=== PATIENT | female | born 1955 | race Caucasian/White ===

== ENCOUNTER 2019-09-25 12:00 | Inpatient (IN) ==
--- NOTE | 2019-09-20 08:45 | Anesthesiology Consultation ---
Date of Service September 20, 2019 Assessment & Plan (1) Encounter for pre-operative examination: *Per nursing phone assessment on 09/12: Travel screen negative. No known COVID-19 positive contacts. No current COVID-19 related symptoms. Surgeon arranging preop COVID testing. Awaiting results. - S/P Left anterior hip replacement: 11/10/17: SAB x1 attempt at L3-L4 at [facility] - No preop EKG received (most recent available EKG from 05/2017). Will order for AM DOS. Chart Review Chart Review: Acceptable Risk for Surgery (pending EKG AM DOS) and Patient NOT seen in Pre Admission Testing History Surgery Operation Date: 06/20/19 11:10 Proposed Procedures p Right Knee Medial Uni Arthroplasty - Renny Coy DO Operation Date: 09/25/19 07:00 Proposed Procedures p Right Knee Medial Uni Arthroplasty, - Renny Coy DO s Possible Total Knee Arthroplasty - Renny Coy DO Height/Weight Height: 5 ft 5 in Weight: 72.575 kg Allergies Allergy/AdvReac Type Severity Reaction Status Date / Time No Known Allergies Allergy Verified 09/13/19 10:33 Medications Home Medications Medication Instructions Recorded Confirmed Last Taken cholecalciferol (vitamin D3) 800 unit PO QAM 10/20/17 09/13/19 11/04/17 08:00 [Vitamin D3] multivitamin 1 tab PO QAM 10/20/17 09/13/19 11/05/17 08:00 ascorbic acid (vitamin C) [Vitamin 250 mg PO QAM 05/16/19 09/13/19 Unknown C] calcium carbonate [Calcium 500] 500 mg PO QAM 05/16/19 09/13/19 Unknown magnesium oxide 400 mg PO QAM 05/16/19 09/13/19 Unknown vitamin B complex 1 tab PO QAM 05/16/19 09/13/19 Unknown apple cider vinegar 300 mg PO QAM 09/13/19 09/13/19 Unknown elderberry fruit-honey 7.5 ml PO QAM 09/13/19 09/13/19 Unknown turmeric 400 mg PO QAM 09/13/19 09/13/19 Unknown Past Medical History Medical History DJD (degenerative joint disease) Osteoarthritis Protein C deficiency no personal hx of DVT/PE, dx d/t family hx of clotting disorder Rheumatoid arthritis possible per remote heme records (2018) Past Family History Family History Mother Family history of diabetes mellitus Past Surgical History Surgical History H/O detached retina repair H/O hysterectomy with oophorectomy History of D&C History of hand surgery MULTIPLE FINGER SURGERIES History of tonsillectomy History of total hip arthroplasty Left anterior hip replacement: 11/10/17: SAB x1 attempt at L3-L4 at [facility] Rectocele S/P cervical spinal fusion 2013 C5-6, C6-7. DENIES RESTRICTIONS. Social History Smoking Status: Never smoker Do You Dip or Chew Tobacco: No Hx Alcohol Use: No Hx Substance Use: No substance use type: does not use Testing Laboratory Results 09/13/19 WBC 4.96 H/H 13.8/42.8 PLATELETS 243 PT 11.9 PTT 33.0 INR 1.04 UA small leuk esterase, negative nitrite HGBA1C 5.7% Electrocardiogram Date: 06/10/17 Findings: + NSR @ (63) NS TWA; Prolonged QT.
--- NOTE | 2019-09-23 21:48 | History & Physical Report ---
Date of Service September 25, 2019 Assessment & Plan (1) Degenerative joint disease of knee, right: I have indicated the patient for right medial unicompartmental knee replacement. The risks, benefits and complications of surgery were explained to the patient which include but not limited to infection, acute blood loss, DVT/PE, injury to nerves, vessels, bone, soft tissue, arthrofibrosis, chronic pain, failure of the prosthesis, knee dislocation, leg length discrepancy, need for additional surgery, cardiac and pulmonary events and . The patient wished to proceed with surgery and informed consent was obtained at this time. We will plan for 81mg ASA BID post-operatively for DVT prophylaxis. Upon discharge the patient will be discharged home with home health services. Appropriate clearances by PCP were obtained. History of Present Illness Chief Complaint: Right knee pain/djd Primary Care Provider: Paul Oliva The patient is a 64 year old female who presents with complaints of severe right knee pain and DJD. The patient has failed outpatient conservative treatments to this point which included NSAIDS, IA corticosteroid and DOBBINS injections, bracing, PT and a home exercise/walking program. The patient's pain and limited function have progressed to the point where they severely hinder their activities of daily living and they no longer tolerate exercise programs. They are requesting to proceed with total knee replacement surgery. Allergies Allergy/AdvReac Type Severity Reaction Status Date / Time No Known Allergies Allergy Verified 09/25/19 12:48 Home Medications Home Medications Medication Instructions Recorded Confirmed Type cholecalciferol (vitamin D3) 800 unit PO QAM 10/20/17 09/25/19 History [Vitamin D3] multivitamin 1 tab PO QAM 10/20/17 09/25/19 History ascorbic acid (vitamin C) [Vitamin 250 mg PO QAM 05/16/19 09/25/19 History C] calcium carbonate [Calcium 500] 500 mg PO QAM 05/16/19 09/25/19 History magnesium oxide 400 mg PO QAM 05/16/19 09/25/19 History vitamin B complex 1 tab PO QAM 05/16/19 09/25/19 History apple cider vinegar 300 mg PO QAM 09/13/19 09/25/19 History elderberry fruit-honey 7.5 ml PO QAM 09/13/19 09/25/19 History turmeric 400 mg PO QAM 09/13/19 09/25/19 History Past Med/Surg History Medical History DJD (degenerative joint disease) Osteoarthritis Protein C deficiency no personal hx of DVT/PE, dx d/t family hx of clotting disorder Rheumatoid arthritis possible per remote heme records (2018) Surgical History H/O detached retina repair H/O hysterectomy with oophorectomy History of D&C History of hand surgery MULTIPLE FINGER SURGERIES History of tonsillectomy History of total hip arthroplasty Left anterior hip replacement: 11/10/17: SAB x1 attempt at L3-L4 at [facility] Rectocele S/P cervical spinal fusion 2013 C5-6, C6-7. DENIES RESTRICTIONS. Family History Mother Family history of diabetes mellitus Social History Smoking Status: Never smoker Second Hand Exposure: No; Do You Dip or Chew Tobacco: No; Tobacco Cessation Education Requested by Patient: No Hx Alcohol Use: No Hx Substance Use: No Preferred Language: Swedish Communication Ability: Effective Psych Rn Required: No Beliefs That Will Affect Care: None Current Living Situation: Alone Other Information That Helps Us Care for You: No Feels Safe at Home: Yes Safety Concerns: Feels Safe At This Time Review of Systems Review of Systems: All systems reviewed & are unremarkable except as noted in HPI & below Constitutional: as per Subjective / HPI Physical Exam Physical Exam: RLE NVSI +EHL/FHL/TA/GS SILT grossly, +2 DP pulse, compartments soft NT, painful ROM 5-110 degrees of flexion, antalgic gait. Constitutional: WD/WN, vitals as above Eyes: PERRL, conjunctivae normal, anicteric sclerae ENMT: external ear and nose normal, oropharynx normal Neck: trachea midline, no thyromegaly Respiratory: normal respiratory effort, lungs clear to auscultation Cardiovascular: RRR, no murmur, no edema Gastrointestinal (Abdomen): normal bowel sounds, soft, nontender, no hepatosplenomegaly Musculoskeletal: no cyanosis or clubbing, extremities motor strength 5/5 Skin: no rashes, warm and dry Neurologic: patellar DTR's 2+ bilat, sensation intact Psychiatric: A+Ox3, euthymic affect Lymphatic: no cervical or axillary lymphadenopathy Results & Data Results & Data ([place]) Diagnostic Findings Multiple views of the knee demonstrates severe DJD with complete loss of the medial joint space. +osteophytes, +sclerosis
[~2019-09-25 12:00] MED LIST: ACETAMINOPHEN 500 MG TAB PO SCH; CEFAZOLIN 1000MG 1,000 MG/7.5 ML SYR IV SCH; CeleBREX 200 MG CAP PO SCH; FAMOTIDINE 20 MG TAB PO SCH; GABAPENTIN 600 MG DOSE PO SCH; LR 500ML BOLUS, THEN 15ML/HR IV SCH; METOCLOPRAMIDE HCL 10 MG TABLET PO SCH; ROPIVACAINE 0.5% HCL/PF 150 MG, BUPIVACAINE 0.5% MPF 30 ML, EPINEPHrine 30MG/30ML (OR U... INFIL ONE; TRANEXAMIC ACID 1,000 MG **IV Intra-op IV SCH; TRANEXAMIC ACID 1,000 MG **IV Pre-op IV SCH; dexAMETHasone 4 MG TAB PO SCH
[2019-09-25] MEDS ORDERED: BUPIVACAINE 0.5 % 5 MG/1 ML PF 10ML VIAL ONE (12:40)
[2019-09-25] MEDS ORDERED: ROPIVACAINE 0.5% 5 MG/ML 30 ML VIAL ONE (12:40)
[2019-09-25 13:13] LABS: Basophils # (auto) 0.01 K/uL (0-0.2); Basophils % (auto) 0.2 %; Eosinophils # (auto) 0.05 K/uL (0-0.5); Eosinophils % (auto) 0.8 %; Immature Granulocytes # (auto) 0.01 K/uL (0.00-0.02); Immature Granulocytes % (auto) 0.2 %; Lymphocytes # (auto) 1.46 K/uL (1.2-3.4); Lymphocytes % (auto) 22.1 %; Mean Corpuscular Hemoglobin 30.8 pg (25-34); Mean Corpuscular Volume 92.3 fL (80-100); Mean Platelet Volume 9.7 fL (7.4-10.4); Monocytes # (auto) 0.56 K/uL (0.11-0.59); Monocytes % (auto) 8.5 %; Neutrophils # (auto) 4.52 K/uL (1.4-6.5); Neutrophils % (auto) 68.2 %; Platelet Count 238 K/uL (130-400); RDW Coefficient of Variation 13.6 % (11.5-14.5); RDW Standard Deviation 45.8 fL (36.4-46.3); Red Blood Count 4.55 M/uL (4.2-5.4); White Blood Count 6.61 K/uL (4.8-10.8)
[2019-09-25] MEDS ORDERED: PROPOFOL IV EMULSION 10 MG/ML 20 ML VIAL IV ONE (13:19)
[2019-09-25] MEDS ORDERED: MIDAZOLAM HCL 1 MG/ML 2ML VIAL ONE ×2 (13:19)
[2019-09-25] MEDS ORDERED: ePHEDrine sulfate 50 MG/ML SYR ONE (13:19)
[2019-09-25] MEDS ORDERED: PHENYLEPHRINE 100MCG/ML 5ML SYR ONE (13:19)
[2019-09-25] MEDS ORDERED: LIDOCAINE HCL 2% 2 ML VIAL/AMP(20MG/ML) INFIL ONE (13:19)
[2019-09-25] MEDS ORDERED: fentaNYL citrate 100 MCG/2 ML VIAL ONE (13:19)
[2019-09-25 13:23] LABS: Partial Thromboplastin Ratio 1.1; Prothrombin Time 10.9 Seconds (9.0-12.0)
[2019-09-25 13:32] LABS: Mean Corpuscular Hgb Conc 33.3 g/dL (32-36)
[2019-09-25 13:34] LABS: BUN Creatinine Ratio 18.6 (10-20); Calcium 9.3 mg/dl (8.5-10.1); Est GFR (African American) 93.1; Est GFR (Non-African American) 80.3; Potassium 3.6 mmol/L (3.5-5.1)
[2019-09-25 13:37] LABS: Estimated Average Glucose 126 mg/dl
--- NOTE | 2019-09-25 14:10 | History & Physical Bridge Note ---
Date of Service September 25, 2019 History & Physical Bridge Note I have examined the patient, reviewed the History & Physical and in the interval since the performance of the History & Physical I have noted the following changes of clinical significance: no changes noted
[2019-09-25] MEDS ORDERED: ORTHO JOINT ANESTHETIC ONE (14:30)
[2019-09-25] MEDS ORDERED: BACITRACIN INJ 50,000 UNIT VIAL ONE (14:30)
[2019-09-25 14:35] LABS: Appearance Urine Clear (Clear); Bacteria Urine Automated Negative (Negative); Bilirubin Urine Negative (Negative); Blood Urine Negative (Negative); Color Urine Yellow; Glucose Urine UA Negative (Negative); Ketones Urine 1+ (Negative); Leukocyte Esterase Urine 2+ (Negative); Nitrite Urine Negative (Negative); Urobilinogen Urine Negative (Negative); WBC Urine Automated >30 /hpf (0-5); pH Urine 8.5 (4.5-7.5)
[2019-09-25 14:44] LABS: Protein Urine 2+ (Negative); Sulfosalicylic Acid Urine Positive (Negative)
[2019-09-25] MEDS ORDERED: fentaNYL citrate 100 MCG/2 ML VIAL IV PRN (14:46)
[2019-09-25] MEDS ORDERED: HYDROmorphone INJ 2 MG/ML SYR/VIAL IV PRN (14:46)
[2019-09-25] MEDS ORDERED: ATROPINE SULFATE 0.1 MG/ML 10ML SYR IV PRN (14:46)
[2019-09-25] MEDS ORDERED: ePHEDrine sulfate 50 MG/ML AMP IV PRN (14:46)
--- NOTE | 2019-09-25 16:27 | Post Operative Brief Note ---
Immediate Post Op Note v1 Date of Surgery September 25, 2019 Pre & Post Diagnosis Operation Date: 06/20/19 11:10 <No data on this case meets the specified criteria> Operation Date: 09/25/19 14:00 Pre-Op Diagnosis: Right Knee Osteoarthritis Post-Op Diagnosis: Right Knee Osteoarthritis I identified the patient and participated in the time-out.: Yes Procedure Operation Date: 06/20/19 11:10 <No data on this case meets the specified criteria> Operation Date: 09/25/19 14:00 Actual Procedures p Right Knee Medial Unicompartmental Arthroplasty(Right) - Renny Coy DO Surgeon Renny Coy DO Hull Builder Dany Maher Estimated Blood Loss 50 Findings Consistent with Post-Op Diagnosis Fluids 1 L of LR Specimens Proximal tibia and distal femur bone fragments Anesthesia Type Spinal MAC Complications none Disposition Disposition: Recovery Room Overlapping Procedure I was present for: the critical portions of procedure. I was immediately available: during the entire case. Back up surgeon: was not required during procedure.
--- NOTE | 2019-09-25 16:28 | Operative Report ---
Post Operative Report Pre & Post Diagnosis Operation Date: 06/20/19 11:10 <No data on this case meets the specified criteria> Operation Date: 09/25/19 14:00 Pre-Op Diagnosis: Right Knee Osteoarthritis Post-Op Diagnosis: Right Knee Osteoarthritis I identified the patient and participated in the time-out.: Yes Procedure Operation Date: 06/20/19 11:10 <No data on this case meets the specified criteria> Operation Date: 09/25/19 14:00 Actual Procedures p Right Knee Medial Unicompartmental Arthroplasty(Right) - Renny Coy DO Surgeon Renny Coy DO Controls Designer Dany Maher Estimated Blood Loss 50 Findings Consistent with Post-Op Diagnosis Specimens Proximal tibia and distal femur bone fragment Anesthesia Type Spinal MAC Complications none Disposition Disposition: Recovery Room Indications The patient is a 64 year old female who presents with complaints of severe right knee pain and DJD. The patient has failed outpatient conservative treatments to this point which included NSAIDS, IA corticosteroid and DOBBINS injections, bracing, PT and a home exercise/walking program. The patient's pain and limited function have progressed to the point where they severely hinder their activities of daily living and they no longer tolerate exercise programs. They are requesting to proceed with total knee replacement surgery. I have indicated the patient for right medial unicompartmental knee replacement. The risks, benefits and complications of surgery were explained to the patient which include but not limited to infection, acute blood loss, DVT/PE, injury to nerves, vessels, bone, soft tissue, arthrofibrosis, chronic pain, failure of the prosthesis, knee dislocation, leg length discrepancy, need for additional surgery, cardiac and pulmonary events and . The patient wished to proceed with surgery and informed consent was obtained at this time. We will plan for 81mg ASA BID post-operatively for DVT prophylaxis. Upon discharge the patient will be discharged home with home health services. Appropriate clearances by PCP were obtained. Description of Procedure Components Used: [employer]hew ZUK - Medial: Femur size D, tibia size 3, tibial articular surface 8mm. Following induction of spinal anesthesia, a tourniquet was applied to the proximal aspect of the thigh and the patient's right leg was prepped and draped in the usual sterile manner. A timeout was performed and site abraham verified. Appropriate IV antibiotics were verified and given. The limb was exsanguinated with esmarch and tourniquet was inflated to 300 mmHg. A longitudinal midline incision was made over the anterior knee. Previous surgical scar was excised. Subcutaneous tissue was sharply dissected down to fascia. Electrocautery was used for hemostasis. Next a medial parapatellar arthrotomy was performed. Meticulous removal of hypertrophic was performed with Bovie. Next, a portion of the anterior fat pad was removed to aid in visualization. The medial face of the tibia was cleared of soft tissue first with a bovie. This tissue was retracted posteriorly using a blunt Hohmann. I then inspected the patellofemoral joint. There was only mild degenerative change in the patellofemoral joint. The patella was subluxed laterally and the knee was flexed. I then inspected the lateral compartment. There was no degenerative change in the lateral compartment. The knee was flexed and access to the medial compartment was obtained. The anterior third of the medial meniscus was excised. The patient-matched distal tibial cutting guide was pinned into place. Care was taken to insure proper fit. The tibial resection was performed centering the lateral cut off of the border of the anterior cruciate ligament. The proximal tibia cutting guide was removed and the patient-matched femoral cutting guide was pinned into place. Once again, care was taken to insure proper fit to the distal femur. The distal femur resection was made at this time. The guide was removed and the 2 in 1 femoral cutting guide was pinned into place, the posts were drilled and the posterior and chamfer cuts were made. The femoral cutting guide was then removed and remaining meniscus and posterior osteophytes were carefully removed. Knee balance and cuts were assessed with spacer block both in extension and flexion. Next the tibial trial plate was pinned into place and posts drilled. The trial femur was impacted into place. I then sequentially trialed to size the polyethylene until there was good soft tissue balancing and range of motion. All the trial components were removed. The deep tissues were anesthetized with an ortho mix solution. Then with Palacos + G, I cemented the final components into place. Once cement hardened the final polyethylene was inserted. The knee was well balanced in all degrees of range of motion. The knee as irrigated with copious amounts of sterile saline solution with bacitracin. The arthrotomy was closed with interrupted #1 Vicryl suture and then subcutaneous tissue was closed with interrupted 2-0 Vicryl suture. The skin was closed with with 3-0 Stratafix and Dermabond Prineo. A sterile dry dressing was applied which included telfa, 4x4s, ABDs and cornel wrap. Tourniquet was deflated at this time at 89 minutes. All needle and sponge counts were correct at the end of the procedure patient was transferred to the PACU in stable condition and without apparent complication. Due to the complex nature of the procedure, the entire surgery was performed with the operational assistance of aDny Maher PA-C. The judicial administrative assistant, under direct supervision, was involved in the actual performance of all aspects of the surgical procedure including patient positioning, hemostasis, tissue retraction, instrument management and wound closure. I attest to the content of the Intraoperative Record and any orders documented therein. Any exceptions are noted below.
--- NOTE | 2019-09-25 17:15 | XRay Report ---
XR knee RT 1 or 2V routine CLINICAL HISTORY: Surgical Post Op COMPARISON: None. DISCUSSION: A single lateral view of the knee is provided for interpretation. This demonstrates gas w ithin the soft tissues consistent with recent surgery. There is a knee arthroplasty which potentially is a hemiarthroplasty. An AP or PA film would be necessary for further evaluation. IMPRESSION: Single crosstable lateral view the right knee demonstrate postsurgical changes ACT 112: Negative or not required by law. Electronically signed by: Mason Clark M.D. 09/25/2019 5:14 PM
--- NOTE | 2019-09-25 17:22 | Anesthesiology Progress Note ---
Date of Service September 25, 2019 Anesthesia Post Procedure Vital Signs Vital Signs: Temp Pulse Pulse Resp BP BP Pulse Ox 09/25/19 17:10 36.7 C 69 14 106/67 93 09/25/19 17:00 73 14 105/61 93 09/25/19 16:54 36.8 C 83 13 115/63 94 09/25/19 12:55 36.7 C 64 16 121/67 99 Transfer of Care Handoff Completed per policy Notes Mental Status: alert / awake / arousable and participated in evaluation Patient Amnestic to Procedure: Yes Nausea / Vomiting: adequately controlled Pain: adequately controlled Airway Patency, RR, SpO2: stable & adequate BP & HR: stable & adequate Hydration State: stable & adequate Anesthetic Complications: no major complications apparent and Pt Satisfied with anesthetic care
[2019-09-25] MEDS ORDERED: ONDANSETRON INJ 2 MG/ML 2 ML VIAL IV PRN (17:28)
[2019-09-25] MEDS ORDERED: MAGNESIUM HYDROXIDE SUSP 30 ML UDC PO PRN (17:28)
[2019-09-25] MEDS ORDERED: OXYCODONE HCL IR 5 MG TAB (IMMEDIATE RELEASE) PO PRN (17:28)
[2019-09-25] MEDS ORDERED: NALOXONE HCL 0.4 MG/1 ML VIAL/CARP IV PRN (17:28)
[2019-09-25] MEDS ORDERED: METOCLOPRAMIDE HCL INJ 5 MG/ML 2 ML VIAL IV PRN (17:28)
[2019-09-25] MEDS ORDERED: bisacodyL 10 MG SUPP PR PRN (17:28)
[2019-09-25] MEDS ORDERED: SODIUM CHLORIDE 0.9% 1000ML 1,000 ML IV SCH (17:28)
[2019-09-25] MEDS ORDERED: HYDROmorphone INJ 0.5 MG/0.5 ML SYR IV PRN (17:28)
[2019-09-25] MEDS: KETOROLAC TROMETHAMINE 15 MG/ML VIAL IV SCH ×2 (17:56→23:22)
--- NOTE | 2019-09-25 19:08 | Orthopedic Progress Note ---
Date of Service September 25, 2019 Assessment & Plan (1) Degenerative joint disease of knee, right: s/p Right knee medial uni arthroplasty -ancef x 24 -DVT ppx: SCDs, TEDs, 81mg ASA BID -WBAT RLE -PT/OT -PO XR demonstrates a well aligned well fixed prothesis without fracture/dislocation -am labs -DC planning Admission and Anticipated Discharge Date Admission Date: September 25, 2019 Subjective Post Operative Progress Note Patient seen sitting up in bed, comfortable, denies complaints, pain well controlled, no acute issues. Patient still feeling effects of spinal anesthesia. Review of Systems Review of Systems: All systems reviewed & are unremarkable except as noted in HPI & below Constitutional: as per Subjective / HPI Physical Exam Physical Exam: RLE PE limited secondary to spinal anesthesia, +2 DP pulse, compartment soft NT, dressing CDI. Constitutional: WD/WN, vitals as above Results & Data ([place]) Vital Signs (Past 12 Hours) Vital Signs Temp Pulse Pulse Resp BP BP Pulse Ox 09/25/19 18:40 65 16 112/67 99 09/25/19 18:03 36.3 C L 09/25/19 18:01 71 18 101/64 96 09/25/19 17:39 36.7 C 65 20 115/71 95 09/25/19 17:10 36.7 C 69 14 106/67 93 09/25/19 17:00 73 14 105/61 93 09/25/19 16:54 36.8 C 83 13 115/63 94 09/25/19 12:55 36.7 C 64 16 121/67 99
[2019-09-25] MEDS ORDERED: SENNA 8.6 MG TAB PO SCH (21:00)
[2019-09-25] MEDS: ACETAMINOPHEN 500 MG TAB PO SCH (21:04)
[2019-09-25] MEDS: DOCUSATE SODIUM 100 MG CAP PO SCH (21:04)
[2019-09-25] MEDS: CEFAZOLIN 2000MG 2,000 MG/15 ML SYR IV SCH (21:04)
[2019-09-26] MEDS: ACETAMINOPHEN 500 MG TAB PO SCH ×2 (05:24→14:04)
[2019-09-26] MEDS: KETOROLAC TROMETHAMINE 15 MG/ML VIAL IV SCH ×2 (05:25→12:34)
[2019-09-26] MEDS: CEFAZOLIN 2000MG 2,000 MG/15 ML SYR IV SCH (05:26)
[2019-09-26 05:33] LABS: Hematocrit (blood only) 40.2 % (37-47); Hemoglobin 12.7 g/dL (12.0-16.0); Mean Corpuscular Hemoglobin 29.5 pg (25-34); Mean Corpuscular Hgb Conc 31.6 g/dL (32-36); Mean Corpuscular Volume 93.5 fL (80-100); Mean Platelet Volume 10.1 fL (7.4-10.4); Platelet Count 235 K/uL (130-400); RDW Coefficient of Variation 13.5 % (11.5-14.5); RDW Standard Deviation 46.2 fL (36.4-46.3); White Blood Count 8.56 K/uL (4.8-10.8)
--- NOTE | 2019-09-26 06:00 | Electrocardiogram Report ---
Test Reason : Blood Pressure : / mmHG Vent. Rate : 067 BPM Atrial Rate : 067 BPM P-R Int : 160 ms QRS Dur : 078 ms QT Int : 450 ms P-R-T Axes : 018 -25 094 degrees QTc Int : 475 ms Normal sinus rhythm Inferior infarct , age undetermined Nonspecific T wave abnormality Abnormal ECG When compared with ECG of 10-JUN-2017 12:55, QRS axis Shifted left Inferior infarct is now Present Confirmed by Rishi Urena ([id number]) on 09/26/2019 5:59:53 AM Referred By: Renny Coy Confirmed By:Rishi Urena
[2019-09-26 06:05] LABS: BUN Creatinine Ratio 19.9 (10-20); Calcium 7.9 mg/dl (8.5-10.1); Creatinine Clr Calc Pharmacy 76.9 ml/min; Est GFR (African American) 100.9; Potassium 4.1 mmol/L (3.5-5.1)
[2019-09-26 07:35] VITALS: PULSE 68
--- NOTE | 2019-09-26 07:46 | Orthopedic Progress Note ---
Date of Service September 26, 2019 Assessment & Plan (1) Degenerative joint disease of knee, right: s/p Right knee medial uni arthroplasty POD#1 -ancef x 24 -DVT ppx: SCDs, TEDs, 81mg ASA BID -WBAT RLE -PT/OT -PO XR demonstrates a well aligned well fixed prothesis without fracture/dislocation -am labs - as above, hgb 12.7 -DC planning - home with HH Admission and Anticipated Discharge Date Admission Date: September 25, 2019 Subjective Post Operative Progress Note Patient seen sitting in chair at bedside, comfortable, pain well controlled, c/o quad muscle weakness. no acute issues. Denies F/C/N/V/SOB/CP. Review of Systems Review of Systems: All systems reviewed & are unremarkable except as noted in HPI & below Constitutional: as per Subjective / HPI Physical Exam Physical Exam: RLE NVSI +EHL/FHL/TA/GS SILT grossly, +2 DP pulse, compartments soft NT, dressing cdi. Constitutional: WD/WN, vitals as above Results & Data ([facility]) Vital Signs (Past 12 Hours) Vital Signs Temp Pulse Pulse Resp BP Pulse Ox 09/26/19 07:32 36.4 C L 68 16 104/66 98 09/26/19 03:17 36.5 C 64 16 104/63 96 09/25/19 23:07 36.4 C L 70 16 109/68 93 09/25/19 21:07 94 09/25/19 20:40 36.2 C L 66 16 103/65 96 09/25/19 19:56 63 12 100/63 95 Laboratory Results 09/26/19 09/26/19 09/25/19 Range/Units 05:02 05:02 12:52 WBC 8.56 (4.8-10.8) K/uL RBC 4.30 (4.2-5.4) M/uL Hgb 12.7 (12.0-16.0) g/dL Hct 40.2 (37-47) % MCV 93.5 (80-100) fL MCH 29.5 (25-34) pg MCHC 31.6 L (32-36) g/dL RDW Std Deviation 46.2 (36.4-46.3) fL RDW Coeff of Deondre 13.5 (11.5-14.5) % Plt Count 235 (130-400) K/uL MPV 10.1 (7.4-10.4) fL Immature Gran % (Auto) % Neut % (Auto) % Lymph % (Auto) % [place] % (Auto) % Eos % (Auto) % Baso % (Auto) % Neut # (Auto) (1.4-6.5) K/uL Lymph # (Auto) (1.2-3.4) K/uL [place] # (Auto) (0.11-0.59) K/uL Eos # (Auto) (0-0.5) K/uL Baso # (Auto) (0-0.2) K/uL Immature Gran # (Auto) (0.00-0.02) K/uL PT (9.0-12.0) Seconds INR (0.9-1.1) APTT (21.0-31.0) Seconds PTT Ratio Sodium 142 (136-145) mmol/L Potassium 4.1 (3.5-5.1) mmol/L Chloride 111 H (98-107) mmol/L Carbon Dioxide 25 (21-32) mmol/L Anion Gap 6.0 (3-11) BUN 14 (7-18) mg/dl Creatinine 0.73 (0.6-1.2) mg/dl Est Cr Clr Drug Dosing 76.9 ml/min Est GFR ( Amer) 100.9 Est GFR (Non-Af Amer) 87.0 BUN/Creatinine Ratio 19.9 (10-20) Glucose 120 H (70-99) mg/dl Estimat Average Glucose 126 mg/dl Hemoglobin A1c 6.0 H (4.5-5.6) % Calcium 7.9 L D (8.5-10.1) mg/dl Urine Color Urine Appearance (Clear) Urine pH (4.5-7.5) Ur Specific [place] (1.000-1.030) Urine Protein (Negative) Urine Glucose (UA) (Negative) Urine Ketones (Negative) Urine Blood (Negative) Urine Nitrite (Negative) Urine Bilirubin (Negative) Urine Urobilinogen (Negative) Ur Leukocyte Esterase (Negative) Urine WBC (Auto) (0-5) /hpf Urine RBC (Auto) (0-4) /hpf U Hyaline Cast (Auto) (0-5) /lpf U Epithel Cells (Auto) (0-5) /lpf Urine Bacteria (Auto) (Negative) Blood Type Antibody Screen 09/25/19 09/25/19 09/25/19 Range/Units 12:52 12:52 12:52 WBC 6.61 (4.8-10.8) K/uL RBC 4.55 (4.2-5.4) M/uL Hgb 14.0 (12.0-16.0) g/dL Hct 42.0 (37-47) % MCV 92.3 (80-100) fL MCH 30.8 (25-34) pg MCHC 33.3 (32-36) g/dL RDW Std Deviation 45.8 (36.4-46.3) fL RDW Coeff of Deondre 13.6 (11.5-14.5) % Plt Count 238 (130-400) K/uL MPV 9.7 (7.4-10.4) fL Immature Gran % (Auto) 0.2 % Neut % (Auto) 68.2 % Lymph % (Auto) 22.1 % [place] % (Auto) 8.5 % Eos % (Auto) 0.8 % Baso % (Auto) 0.2 % Neut # (Auto) 4.52 (1.4-6.5) K/uL Lymph # (Auto) 1.46 (1.2-3.4) K/uL [place] # (Auto) 0.56 (0.11-0.59) K/uL Eos # (Auto) 0.05 (0-0.5) K/uL Baso # (Auto) 0.01 (0-0.2) K/uL Immature Gran # (Auto) 0.01 (0.00-0.02) K/uL PT 10.9 (9.0-12.0) Seconds INR 1.0 (0.9-1.1) APTT 30.0 (21.0-31.0) Seconds PTT Ratio 1.1 Sodium 141 (136-145) mmol/L Potassium 3.6 (3.5-5.1) mmol/L Chloride 106 (98-107) mmol/L Carbon Dioxide 29 (21-32) mmol/L Anion Gap 6.0 (3-11) BUN 15 (7-18) mg/dl Creatinine 0.78 (0.6-1.2) mg/dl Est Cr Clr Drug Dosing 72.0 ml/min Est GFR ( Amer) 93.1 Est GFR (Non-Af Amer) 80.3 BUN/Creatinine Ratio 18.6 (10-20) Glucose 92 (70-99) mg/dl Estimat Average Glucose mg/dl Hemoglobin A1c (4.5-5.6) % Calcium 9.3 (8.5-10.1) mg/dl Urine Color Urine Appearance (Clear) Urine pH (4.5-7.5) Ur Specific [place] (1.000-1.030) Urine Protein (Negative) Urine Glucose (UA) (Negative) Urine Ketones (Negative) Urine Blood (Negative) Urine Nitrite (Negative) Urine Bilirubin (Negative) Urine Urobilinogen (Negative) Ur Leukocyte Esterase (Negative) Urine WBC (Auto) (0-5) /hpf Urine RBC (Auto) (0-4) /hpf U Hyaline Cast (Auto) (0-5) /lpf U Epithel Cells (Auto) (0-5) /lpf Urine Bacteria (Auto) (Negative) Blood Type Antibody Screen 09/25/19 09/25/19 Range/Units 12:52 12:45 WBC (4.8-10.8) K/uL RBC (4.2-5.4) M/uL Hgb (12.0-16.0) g/dL Hct (37-47) % MCV (80-100) fL MCH (25-34) pg MCHC (32-36) g/dL RDW Std Deviation (36.4-46.3) fL RDW Coeff of Deondre (11.5-14.5) % Plt Count (130-400) K/uL MPV (7.4-10.4) fL Immature Gran % (Auto) % Neut % (Auto) % Lymph % (Auto) % [place] % (Auto) % Eos % (Auto) % Baso % (Auto) % Neut # (Auto) (1.4-6.5) K/uL Lymph # (Auto) (1.2-3.4) K/uL [place] # (Auto) (0.11-0.59) K/uL Eos # (Auto) (0-0.5) K/uL Baso # (Auto) (0-0.2) K/uL Immature Gran # (Auto) (0.00-0.02) K/uL PT (9.0-12.0) Seconds INR (0.9-1.1) APTT (21.0-31.0) Seconds PTT Ratio Sodium (136-145) mmol/L Potassium (3.5-5.1) mmol/L Chloride (98-107) mmol/L Carbon Dioxide (21-32) mmol/L Anion Gap (3-11) BUN (7-18) mg/dl Creatinine (0.6-1.2) mg/dl Est Cr Clr Drug Dosing ml/min Est GFR ( Amer) Est GFR (Non-Af Amer) BUN/Creatinine Ratio (10-20) Glucose (70-99) mg/dl Estimat Average Glucose mg/dl Hemoglobin A1c (4.5-5.6) % Calcium (8.5-10.1) mg/dl Urine Color Yellow Urine Appearance Clear (Clear) Urine pH 8.5 H (4.5-7.5) Ur Specific [place] 1.020 (1.000-1.030) Urine Protein 2+ H (Negative) Urine Glucose (UA) Negative (Negative) Urine Ketones 1+ H (Negative) Urine Blood Negative (Negative) Urine Nitrite Negative (Negative) Urine Bilirubin Negative (Negative) Urine Urobilinogen Negative (Negative) Ur Leukocyte Esterase 2+ H (Negative) Urine WBC (Auto) >30 H (0-5) /hpf Urine RBC (Auto) 5-10 H (0-4) /hpf U Hyaline Cast (Auto) 10-30 H (0-5) /lpf U Epithel Cells (Auto) 10-20 H (0-5) /lpf Urine Bacteria (Auto) Negative (Negative) Blood Type A Positive Antibody Screen NEGATIVE
[2019-09-26] MEDS: DOCUSATE SODIUM 100 MG CAP PO SCH (08:28)
[2019-09-26] MEDS ORDERED: MULTIVITAMIN TAB PO SCH (09:00)
[2019-09-26] MEDS ORDERED: ASPIRIN 81 MG ECTAB PO SCH (09:00)
[2019-09-26 16:06] VITALS: BP 114/64; TEMP 98.1; O2SAT 100
--- NOTE | 2019-09-26 20:36 | Discharge Summary ---
Date of Service September 26, 2019 Admission HPI Per Admitting Provider The patient is a 64 year old female who presents with complaints of severe right knee pain and DJD. The patient has failed outpatient conservative treatments to this point which included NSAIDS, IA corticosteroid and DOBBINS injections, bracing, PT and a home exercise/walking program. The patient's pain and limited function have progressed to the point where they severely hinder their activities of daily living and they no longer tolerate exercise programs. They are requesting to proceed with medial unicompartmental knee replacement surgery. Principal Diagnosis Right knee medial unicompartmental arthroplasty -Right knee DJD Discharge Exam RLE NVSI +EHL/FHL/TA/GS SILT grossly, +2 DP pulse, compartments soft NT, dressing cdi. Constitutional WD/WN, vitals as above Discharge Data Allergies Allergy/AdvReac Type Severity Reaction Status Date / Time No Known Allergies Allergy Verified 09/25/19 12:48 Consultations 09/25/19 17:28 Consult Case Management - Discharge Planning Routine Procedures Performed Operation Date: 06/20/19 11:10 <No data on this case meets the specified criteria> Operation Date: 09/25/19 14:00 Actual Procedures p Right Knee Medial Unicompartmental Arthroplasty(Right) - Renny Coy DO Ordered Studies 09/25/19 05:00 US - OR guided needle placemen Routine Hospital Course (1) Degenerative joint disease of knee, right: The patient is a 64 -year-old female who presents with long standing history of severe right knee DJD of the medial compartment and failed outpatient conservative treatments. The patient's symptoms have progressed to the point where it has been difficult to perform even normal activities of daily living. I indicated the patient for a right medial unicompartmental arthroplasty, the risks, benefits and complications of the procedure include but not limited to infection, bleeding, damage to bone, nerves, vessels, surrounding soft tissue, may develop blood clots, loss of function, leg length discrepancy, dislocation, failure of the components, loosening of the components, the need for additional surgery and . The patient wished to proceed with surgery at this time and informed consent was obtained. Hospital Course: On 09/25/19 the patient was taken to the operating room, adequate anesthesia administered and underwent a right medial unicompartmental arthroplasty. The patient tolerated the procedure well and was taken to the PACU in stable condition. Post-operatively the patient was started on a DVT ppx medication and given appropriate IV antibiotics. Consults were placed to physical therapy, occupational therapy and case management. On POD#1, the patient did well overnight and their pain was well controlled. Labs were drawn and the Hgb was 12.7. The patient progressed well with PT. Dressings were changed at this time and the incision was clean, dry and intact. The patients hospital stay was relatively uneventful and they were deemed stable by the orthopedic team and consultants to be discharged home with HH on 09/26/19. Discharge Instructions: Upon discharge the patient may weight bear as tolerates through their operative extremity. They were instructed to keep the incision clean and dry at all times. The patient may shower but should not submerge the incision, avoid b athing, pools and hot tubes. The patient was given a script for pain medication and should take as instructed. The patient was given a script for DVT ppx 81mg ASA BID and should take as directed. The patient was instructed to not drive or travel for long distances until cleared to do so. If the patient develops any symptoms of fevers, chills, nausea, vomiting, increased redness, swelling, pain or drainage from the surgical site, they should notify the office and/or proceed to the nearest emergency room. The patient should follow up in 10-14 days after surgery for their routine post-operative follow-up appointment and should call the office to confirm the date and time. s/p Right knee medial uni arthroplasty POD#1 -ancef x 24 -DVT ppx: SCDs, TEDs, 81mg ASA BID -WBAT RLE -PT/OT -PO XR demonstrates a well aligned well fixed prothesis without fracture/dislocation -am labs - as above, hgb 12.7 -DC planning - home with Total Time Total Time Spent Total Time Spent (In Minutes): 30 Discharge Plan Discharge Items Patient Disposition: Home - Home Health Services Reason For Visit: Right Knee Osteoarthritis Discharge Diagnosis: Right knee medial uni compartmental arthoplasty Condition on Discharge: Good Activity: Per Instructions section Lifting: Wait until after follow-up appointment Bathing: Keep incision dry Bathing Comment: No bathing, pools or hot tubs. Sexual Activity: Wait until after follow-up appointment Exercise/Sports: Wait until after follow-up appointment Driving/Machine Use: No driving Weightbearing: Full weightbearing Non-emergency contact: Primary Care Provider and Surgeon Call non-emergency contact if: you have any medication questions, your symptoms worsen, your pain is not controlled, your pain is worsening, your pain is unusual for you, your pain is concerning for you, you have a fever, your temperature is above 101, your wound has increased redness, your wound has increased drainage and your wound pain has increased Follow-up/Referrals: Samson Leal M.D. [Primary Care Provider] - Diet: Regular Addtl Attending Provider Instructions: ACTIVITY RECOMMENDATIONS: SELF CARE INSTRUCTIONS AFTER PARTIAL KNEE REPLACEMENT A. You may need to continue a physical therapy program after discharge from the hospital. There are several options available to you. Your doctor will assist you in selecting the best one for you. 1. An out-patient facility 2 to 3 times a week for therapy or home therapy. 2. Continue working on all exercises taught to you in the hospital. Your goals should be to increase bending of your knee to 90 degrees and beyond and to fully straighten your knee. B. You may progress at your own pace from walking with a walker or crutches to a cane; then to no assistive devices. C. Make walking a part of your daily routine. Be up as much as comfortable with rest periods throughout the day. Rest with leg elevation is very important. Use the ice wrap frequently for the first 3-4 weeks. D. There are no restrictions on activities. You may ride in a car, shop, participate in interior decorator and all social activities. E. Wear the long elastic stockings (FRANCIS hose) 20 hours a day for 2 weeks after surgery. They can be removed several times a day for laundering and for a bath. F. You may shower, no tub baths until cleared by your doctor. SPECIAL CARE INSTRUCTIONS: VERY IMPORTANT TO READ AND REVIEW A. There are a few signs you need to watch for after you are home. Call [facility] if you notice any of the followin. Increased severe knee pain. Some pain is expected especially when you exercise. 2. Increased swelling in your leg or knee; pain or swelling of the calf muscle in either lower leg. 3. Any fluid drainage from the incision. 4. Shortness of breath or chest pain. B. Please call [facility] at if you have any concerns or questions about your operation or recovery. The doctor or his nurse will return your call promptly. C. You must take antibiotics before dental work, bladder, bowel or other surgery. Your doctor will provide you with a permanent care to carry describing this precaution. IMPORTANT: * REMEMBER TO TAKE ASPIRIN, 81 MG, TWICE DAILY FOR 4 WEEKS UNLESS OTHERWISE DIRECTED. THIS IS YOUR BLOOD THINNER. * HIGH RISK PATIENTS MAY BE PRESCRIBED A STRONGER BLOOD THINNER. THIS WILL BE PROVIDED AT DISCHARGE. * CALL IF INCREASED PAIN, REDNESS, DRAINAGE OR FEVER GREATER THAT 101. * WEAR FRANCIS HOSE 20 HOURS PER DAY FOR 2 WEEKS. *DERMABOND Prineo- This is a mesh tape dressing that is covered with glue. It should remain in place until the incision is properly healed, usually 10-14 days . This dressing is designed to naturally slough off. You may trim the excess mesh tape as it peels off. Incision may be briefly wet in a shower. Dry immediately by blotting with a clean, dry towel. Do not bath or swim until instructed by your doctor. Do not scratch, rub, or pick at the dressing. Do not apply any topical ointments or lotions until dressing is completely removed and/or instructed by your doctor. There may be a small piece of suture material at one end of your incision. Do not pull or trim this. If it is bothersome or catching on clothing, you may cover it with a band-aid. FOLLOW UP VISIT: If appointment is not already scheduled: Please call [facility] to make a follow-up appointment for 2 weeks after your surgery at . Pending Studies at Discharge: No Stand-Alone Forms: My [facility], Opioid Pain Management, Smoking Cessation Medications and DC Order Prescriptions: New celecoxib [Celebrex] 200 mg Capsule 200 mg PO BID PRN (Reason: pain/inflammation) Qty: 28 RF: 0 aspirin 81 mg Tablet,Delayed Release (Dr/Ec) 81 mg PO BID Qty: 56 RF: 0 acetaminophen 500 mg Tablet 1,000 mg PO Q8 PRN (Reason: pain/fevers) Qty: 90 RF: 0 oxycodone 5 mg Tablet 5 mg PO Q6H MDD 4 PRN (Reason: pain) Qty: 30 RF: 0 sennosides [Senokot] 8.6 mg Tablet 17.2 mg PO HS PRN (Reason: constipation) Qty: 28 RF: 0 Continued vitamin B complex Tablet 1 tab PO QAM RF: 0 ascorbic acid (vitamin C) [Vitamin C] 250 mg Tablet,Chewable 250 mg PO QAM RF: 0 calcium carbonate [Calcium 500] 500 mg calcium (1,250 mg) Tablet,Chewable 500 mg PO QAM RF: 0 magnesium oxide 400 mg magnesium Capsule 400 mg PO QAM RF: 0 apple cider vinegar 300 mg Tablet 300 mg PO QAM RF: 0 elderberry fruit-honey 0.7-3 gram/7.5 mL Liquid 7.5 ml PO QAM RF: 0 cholecalciferol (vitamin D3) [Vitamin D3] 400 unit Tablet 800 unit PO QAM RF: 0 multivitamin Tablet 1 tab PO QAM RF: 0 Discontinued turmeric 400 mg Capsule 400 mg PO QAM RF: 0 Discharge Orders: Discharge Order (Routine); Ordered 09/26/19 Ordered By: Renny Baldwin/Other Patient Handouts: DVT Post Op Prevention, A1C Admission Data Admit Date/Time: 09/25/19 16:55 Attending Provider: Renny Coy Admit Provider: Renny Coy Primary Care Provider: Samson Leal Other Interventions: Discharge Summary Assessment (RN) Last Done: 09/26/19 13:48 DC Date/Time DO NOT enter until pt leaves facility: 09/26/19 16:25
[2019-09-26] MEDS ORDERED: CeleBREX 200 MG CAP PO SCH (21:00)
== END 2019-09-26 16:25 | disposition home health service (06) | DRG 470 ==
LOC: ASU 12:00 → 3E 16:55